=== PATIENT | female | born 1965 | race Caucasian/White ===

== ENCOUNTER 2017-11-18 18:44 | Emergency (ER) | payer OTHER ==
[2017-11-18] MEDS ORDERED: POTASSIUM CHLORIDE 20MEQ 50 ML IV ×2 (20:15)
[2017-11-18] MEDS ORDERED: IV NORMAL SALINE 1000ML BAG 1,000 ML IV ×2 (20:30)
[2017-11-18] MEDS: POTASSIUM CHLORIDE 20 MEQ TABLET.ER. PO ×2 (20:41)
[2017-11-18 21:19] LABS: AGAP ISTAT 17 mmol/L (6-14); BUN ISTAT 22 mg/dL (8-26); CHLORIDE ISTAT 97 mmol/L (98-110); CREATININE ISTAT 0.6 mg/dL (0.5-1.4); GLUCOSE ISTAT 109 mg/dL (70-99); HEMATOCRIT ISTAT 36 % (36-40); HEMOGLOBIN ISTAT 12.2 g/dL (12-15); ION CA ISTAT 1.05 mmol/L (1.13-1.32); POTASSIUM ISTAT 2.5 mmol/L (3.5-5.0); SODIUM ISTAT 136 mmol/L (135-145); TOT CO2 ISTAT 27 mmol/L (23-32)
== END 2017-11-18 22:01 | disposition home or self-care (01) ==
LOC: ER 18:44
DX: E87.6 Hypokalemia (principal); E03.9 Hypothyroidism, unspecified; Z98.84 Bariatric surgery status; Z88.5 Allergy status to narcotic agent
CPT/HCPCS: 80047; 85014; 85018; 93005; 96360; 96365; 99284-25

== ENCOUNTER 2020-06-05 10:21 | Emergency (ER) | payer OTHER ==
[~2020-06-05] VITALS: Ht 162.6 cm; Wt 89.0 kg
[~2020-06-05 10:21] MED LIST: BUPR75TA5 PO; BUSP30TA PO; DULO60CA6 PO; FOLI1TAB6 PO; HYDR12.58 PO; METH-39 PO; POTA20TA4 PO; TRAZ-123 PO; VALS40TA2 PO; hormone patch
[2020-06-05 11:54] VITALS: BP 115/71
[2020-06-05] MEDS ORDERED: ORPH100T PO (12:16)
[2020-06-05] MEDS ORDERED: HYDR-3164 PO (12:16)
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
== END 2020-06-05 13:07 | disposition home or self-care (01) ==
LOC: ER 10:21
DX: M25.511 Pain in right shoulder (principal); E03.9 Hypothyroidism, unspecified; Z95.1 Presence of aortocoronary bypass graft; Z88.5 Allergy status to narcotic agent
CPT/HCPCS: 29105; 73030; 73060; 99284

== ENCOUNTER 2020-06-14 15:03 | Emergency (ER) | payer OTHER ==
[~2020-06-14] VITALS: Ht 162.6 cm; Wt 90.0 kg
[~2020-06-14 15:03] MED LIST changes: +HYDR-3164 PO; +ORPH100T PO
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
== END 2020-06-14 17:10 | disposition home or self-care (01) ==
LOC: ER 15:03
DX: M25.562 Pain in left knee (principal); M25.511 Pain in right shoulder; F41.9 Anxiety disorder, unspecified; F32.9 Major depressive disorder, single episode, unspecified; I10 Essential (primary) hypertension; Z98.890 Other specified postprocedural states
CPT/HCPCS: 73564; 99283

== ENCOUNTER → 2020-07-04 | Outpatient (CLI) | payer OTHER ==
[2020-06-14 15:33] VITALS: BP 118/75
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
== END | disposition home or self-care (01) ==
LOC: KCIC MRI 09:10
PROVIDERS: ATTEND Physician Assistant
DX: S49.91XA Unspecified injury of right shoulder and upper arm, initial encounter (principal); M75.51 Bursitis of right shoulder; M75.101 Unspecified rotator cuff tear or rupture of right shoulder, not specified as traumatic; X58.XXXA Exposure to other specified factors, initial encounter; Y93.89 Activity, other specified; Y92.89 Other specified places as the place of occurrence of the external cause; Y99.8 Other external cause status
CPT/HCPCS: 73221